=== PATIENT | male | born 1965 | race Hispanic/Latino ===

== ENCOUNTER 2020-03-21 11:07 | Inpatient (IN) | payer OTHER ==
[~2020-03-21] VITALS: Ht 182.9 cm; Wt 81.6 kg
[2020-03-21 11:52] LABS: BASOPHILS % (AUTO) 0.4 % (0.0-5.0); EOSINOPHILS % (AUTO) 0.5 % (0.0-8.0); HEMATOCRIT 48.2 % (42-54); MEAN CORPUSCULAR HEMOGLOBIN 28.9 pg (27.0-33.0); MEAN CORPUSCULAR HGB CONC 33.6 g/dL (32.0-36.0); MEAN CORPUSCULAR VOLUME 85.9 fL (79-99); MONOCYTES % (AUTO) 5.3 % (3.0-13.0); NEUTROPHILS % (AUTO) 72.7 % (40.0-77.0); PLATELET COUNT (AUTO) 256 K/uL (130-400); RED BLOOD CELL COUNT(AUTO) 5.61 MIL/uL (4.50-6.20); RED CELL DISTRIBUTION WIDTH 13.3 % (11.0-15.5); WHITE BLOOD COUNT (AUTO) 10.5 K/uL (4.8-10.8)
[2020-03-21 12:04] LABS: CREATININE 0.9 mg/dL (0.5-1.5); POTASSIUM 3.5 mmol/L (3.5-5.1)
[2020-03-21 12:08] LABS: INR 0.94 (0.85-1.15); PARTIAL THROMBOPLASTIN TIME 25.8 SEC (26.3-35.5); PROTHROMBIN TIME 10.2 SEC (9.6-11.6)
[2020-03-21 13:12] LABS: APPEARANCE,URINE Clear (CLEAR); BILIRUBIN,URINE Small (NEGATIVE); COLOR,URINE Dark Yellow (YELLOW); GLUCOSE, URINE (UA) TRACE mg/dL (NEGATIVE); KETONES,URINE Trace mg/dL (NEGATIVE); LEUKOCYTE ESTERASE ,URINE Trace (NEGATIVE); NITRATE,URINE Negative (NEGATIVE); OCCULT BLOOD,URINE Negative (NEGATIVE); PROTEIN,URINE POS 1+ mg/dL (NEGATIVE)
[2020-03-21 13:18] LABS: BACTERIA,URINE Few /HPF (None Seen); MUCUS,URINE Moderate LPF (None Seen); RBC,URINE 0-1 /HPF (0-1); SQUAMOUS EPITHELIAL CELL,UR Rare /HPF (0-2); WBC,URINE 0-1 /HPF (0-1)
[2020-03-21 13:19] LABS: AMPHET/METH SCREEN,URINE NEGATIVE (NEGATIVE); BARBITURATE SCREEN, URINE NEGATIVE (NEGATIVE); BENZODIAZEPINES SCREEN,URINE NEGATIVE (NEGATIVE); CANNABINOID SCREEN,URINE NEGATIVE (NEGATIVE); COCAINE SCREEN,URINE NEGATIVE (NEGATIVE); OPIATE SCREEN,URINE NEGATIVE (NEGATIVE); PHENCYCLIDINE SCREEN,URINE NEGATIVE (NEGATIVE)
[2020-03-21] MEDS ORDERED: LABETALOL 20 MG/4 ML DISP.SYRIN IV PRN (14:00)
[2020-03-21] MEDS ORDERED: ACETAMINOPHEN EXTENDED RELEASE 650 MG TABLET PO PRN ×2 (14:00)
[2020-03-21] MEDS ORDERED: ATORVASTATIN CALCIUM 20 MG TABLET PO SCH ×2 (14:00→21:00)
[2020-03-21] MEDS ORDERED: ASPIRIN 325MG EC TAB 325 MG TABLET.DR PO SCH (14:00)
[2020-03-21] MEDS ORDERED: IOHEXOL-350 75 ML VIAL IV ONE (15:39)
[2020-03-21] MEDS ORDERED: ASPIRIN 325 MG TABLET ONE (15:59)
[2020-03-21] MEDS ORDERED: ATORVASTATIN CALCIUM 40 MG TABLET ONE (15:59)
[2020-03-21 16:43] VITALS: BP 182/97
--- NOTE | 2020-03-21 18:00 | NUR ---
NOTE PATIENT CAME UP FROM [facility] EARLIER AND DR BASILIO CAME UP HERE TO SEE HIM FORHE WAS FOLLOWING RECOMMENDATIONS FROM TELENEUROLOGY DONE IN [facility] IF STUDIES RECOMMENDED BY NEUROLOGIST WERE ABNORMAL, THE PATIENT WOULD BE TRANSFERRED TO HIGHER LEVEL OF CARE. I CALLED THE PATIENT'S BROTHER ARTUR AND HAD HIM ON SPEAKER PHONE WHILE I HAD DR BASILIO AND PATIENT LISTENING. HE CLARIFIED STORY THAT PATIENT HAD A SIMILAR EVENT ABOUT 3 MONTHS AGO WHERE HE WAS WEAKER TO ONE SIDE OF HIS BODY BUT NOT BAD AND HE WENT HOME RECOVERED AND NOW ABOUT END OF LAST WEEK HIS BROTHER ARTUR WAS CALLED BY THE PATIENT'S NEIGHBOR THAT HE WAS NOT MOVING MUCH. ARTUR WENT TO GO SEE HIM SATURDAY AND TOOK PATIENT HOME. I ASKED THE BROTHER WHY HE DID NOT BRING THE PATIENT INTO [facility] SATURDAY AND HE STATED THAT THE PATIENT TOLD HIM HE WOULD GET BETTER BUT TODAY HE COULD NOT TAKE CARE OF HIM AND BROUGHT HIM IN. STUDIES SHOW HE HAD A STROKE. DR BASILIO SPOKE TO TELENEUROLOGIST AND DR NEWMAN AND DR GALLOWAY AT [facility] AND HE WILL ACCEPT THE TRANSFER OF THE PATIENT. TRACK REPAIR WORKER MADE AWARE. THEY WILL WORK ON THE TRANSFER.
[2020-03-21 19:15] VITALS: BP 148/98
--- NOTE | 2020-03-21 20:00 | NUR ---
ASSESS SHIFT ASSESSMENT DONE, PLEASE REFER TO CHART. RESOURCE NURSE IN AND INFORMED CLINICAL MANAGER HOME CARE TO FAX PAPERS TO EMS AND CALL FOR TRANSPORT. ROOM IS ALREADY AVAILABLE IN [facility] [place]. Addendum: 03/21/20 at 2344 by AMALIA EDMOND RN RN Amended: Links added.
--- NOTE | 2020-03-21 20:15 | NUR ---
[facility]S CALLED EMS FOR TRANSPORT FOR PT.
--- NOTE | 2020-03-21 20:25 | NUR ---
[place] [facility] [place] DAVID.
--- NOTE | 2020-03-21 20:45 | NUR ---
[facility] EMS IN TO EXTENSION DIVISION DIRECTOR PT. COPIED CHART GIVEN. TRANSFERRED PT FOR MORE CARE AND MANAGEMENT.
[2020-03-22] MEDS ORDERED: FAMOTIDINE 20MG TAB 20 MG TAB PO SCH (09:00)
[2020-03-22 09:31] LABS: RAPID PLASMA REAGIN NONREACTIVE (NONREACTIVE)
== END 2020-03-21 20:49 | disposition short-term general hospital (02) | DRG 65 ==
LOC: EDH 11:07 → EDHIP 11:08 → 3DH 16:14
PROVIDERS: ADMIT Family Medicine; ATTEND Family Medicine
DX: I63.9 Cerebral infarction, unspecified (principal); I69.354 Hemiplegia and hemiparesis following cerebral infarction affecting left non-dominant side; E78.5 Hyperlipidemia, unspecified; I10 Essential (primary) hypertension; I25.10 Atherosclerotic heart disease of native coronary artery without angina pectoris; I65.22 Occlusion and stenosis of left carotid artery; I66.03 Occlusion and stenosis of bilateral middle cerebral arteries; I66.22 Occlusion and stenosis of left posterior cerebral artery; I73.9 Peripheral vascular disease, unspecified
CPT/HCPCS: 36415; 70450; 70496; 70498; 70551; 80048; 80305; 81001; 82948; 84484; 85025; 85610; 85651; 85730; 86140; 86592; 86701; 87390; 93005; G0378; Q9967